=== PATIENT | female | born 1960 | race Caucasian/White ===

== ENCOUNTER 2016-07-14 01:16 | Emergency (ER) | payer OTHER ==
[2016-07-14] MEDS ORDERED: HYDROcodone/APAP 5-325MG 1 EACH TAB PO STA (02:21)
[2016-07-14] MEDS ORDERED: PENICILLIN VK 500MG STARTER 4 TAB BTL PO STA (02:21)
--- NOTE | 2016-07-14 02:25 | ED ---
ENT HPI - General Chief complaint: Dental/Oral Stated complaint: dental pain Time Seen by Provider: 07/14/16 01:33 Source: patient, RN notes reviewed Mode of arrival: ambulatory Limitations: no limitations - History of Present Illness Initial comments: 55 yo female presents to the emergency Department chief complaint of left-sided dental pain. Patient states this started yesterday. Patient states that she called multiple dentists that they were unable to get her in. Patient denies any fever chills. Patient has difficulty opening or closing the mouth. Patient denies any radiation to the neck. Patient was concerned due to her continued pain and discomfort associated that she should be evaluated.Patient denies any recent fever, chills, shortness of breath, chest pain, back pain, abdominal pain, nausea vomiting, numbness or tingling, dysuria or hematuria, constipation or diarrhea, headaches or visual changes, or any other current symptoms. - Related Data Previous Rx's Medication Instructions Recorded Hydrocodone/Acetaminophen [[place] 1 each PO Q6HR PRN #20 tab 07/14/16 5-325] Penicillin V Potassium [Pen Vee K] 500 mg PO TID #40 tab 07/14/16 Allergies Allergy/AdvReac Type Severity Reaction Status Date / Time No Known Allergies Allergy Verified 07/14/16 01:28 Review of Systems ROS Statement: Those systems with pertinent positive or pertinent negative responses have been documented in the HPI. ROS Other: All systems not noted in ROS Statement are negative. Past Medical History Past Medical History: No Reported History History of Any Multi-Drug Resistant Organisms: None Reported Past Surgical History: No Surgical Hx Reported Past Psychological History: No Psychological Hx Reported Smoking Status: Current every day smoker Past Alcohol Use History: None Reported Past Drug Use History: None Reported General Exam Limitations: no limitations General appearance: alert, in no apparent distress Head exam: Present: atraumatic, normocephalic, other (Patient does appear to have left sided lower mandible swelling.) Eye exam: Present: normal appearance, PERRL, EOMI. Absent: scleral icterus, conjunctival injection, periorbital swelling ENT exam: Present: normal exam, mucous membranes moist Expanded Mouth exam: Present: normal external inspection Teeth exam: Present: dental caries (Throughout) Neurological exam: Present: alert, oriented X3 Psychiatric exam: Present: normal affect, normal mood Skin exam: Present: warm Course Vital Signs 07/14/16 01:28 Temperature 98.9 F Pulse Rate 89 Respiratory 16 Rate Blood Pressure 170/74 O2 Sat by Pulse 98 Oximetry Medical Decision Making - Medical Decision Making 55 of left-sided dental pain. At this time we discussed the patient pain medication and antibiotics. The follow-up with a dentist return parameters all patient's questions and she stated that she understood and she is negative clamp. This time, answered. She will be discharged home. Disposition Clinical Impression: Dental caries Disposition: HOME SELF-CARE Condition: Stable Instructions: Dental Caries (ED) Additional Instructions: Please use medication as discussed. Please follow up with family doctor if symptoms have not improved over the next two days. Please return to the emergency room if your symptoms increase or worsen or for any other concerns. [facility] [place] [address] [place] [address] [phone] (existing clients only) For new clients: [phone] 1st consult: $50 (includes Xrays) Usually 30% less then private dentist for visits after. [employer] [facility] [employer] Have to pay $50 for Xrays anmd rest is covered. [phone] Prescriptions: Hydrocodone/Acetaminophen [[place] 5-325] 1 each PO Q6HR PRN #20 tab PRN Reason: Pain Penicillin V Potassium [Pen Vee K] 500 mg PO TID #40 tab Referrals: None,Stated [Primary Care Provider] - 1-2 days Ridge Lambert MD [STAFF PHYSICIAN] - 1-2 days Time of Disposition: 02:24
[2016-07-14 02:30] VITALS: BP 133/87; PULSE 78; RESP 18; TEMP 98.3
== END 2016-07-14 02:29 | disposition home or self-care (01) ==
LOC: EC 01:16
DX: K02.9 Dental caries, unspecified (principal); F17.200 Nicotine dependence, unspecified, uncomplicated
CPT/HCPCS: 99282

== ENCOUNTER 2019-04-16 12:34 | Emergency (ER) | payer OTHER ==
[2019-04-16] MEDS ORDERED: NITROGLYCERIN SL TABS 0.4 MG TAB SUBLINGUAL STA (13:10)
[2019-04-16 13:20] LABS: Basophils # (A) 0.1 k/uL (0-0.2); Basophils % (A) 1 %; Eosinophils # (A) 0.1 k/uL (0-0.7); Eosinophils % (A) 2 %; HCT 45.2 % (34.0-46.0); HGB 14.8 gm/dL (11.4-16.0); Lymphocytes % (A) 18 %; MCH 31.3 pg (25.0-35.0); MCHC 32.8 g/dL (31.0-37.0); MCV 95.3 fL (80.0-100.0); Mean Platelet Volume 7.4; Monocytes # (A) 0.3 k/uL (0-1.0); Monocytes % (A) 6 %; Neutrophils % (A) 72 %; Platelet Count 339 k/uL (150-450); RBC 4.75 m/uL (3.80-5.40); RDW 12.3 % (11.5-15.5); WBC 5.5 k/uL (3.8-10.6)
--- NOTE | 2019-04-16 13:27 | ED ---
Chest Pain HPI - General Chief Complaint: Chest Pain Stated Complaint: Chest tightness/arm numbness Time Seen by Provider: 04/16/19 12:50 Source: patient, RN notes reviewed Mode of arrival: ambulatory Limitations: no limitations - History of Present Illness Initial Comments: This is a 58-year-old female with no prior history of heart disease who is a s moker and does have COPD who was sent here from [facility] due to the onset of chest pain around 11 AM this morning when she was going to work she states it was tightness 5-6/10 severity associated with some numbness of both arms up. She was given 4 baby aspirin is at the outpatient clinic. She states that yesterday she had sweats and hot flashes lasting about an hour yesterday. She also has some similar symptoms which went away quickly today her that going away quickly though she does states she feels improved at this time and the chest discomfort is 0-1/10 in severity she still has the arm numbness which is somewhat improved it. She is a smoker. She has no recent fevers chills nausea or vomiting she did have the symptoms reported yesterday. No abdominal pain no other modifying factors MD Complaint: chest pain - Related Data Home Medications Medication Instructions Recorded Confirmed No Known Home Medications 04/16/19 04/16/19 Allergies Allergy/AdvReac Type Severity Reaction Status Date / Time No Known Allergies Allergy Verified 04/16/19 14:16 Review of Systems ROS Statement: Those systems with pertinent positive or pertinent negative responses have been documented in the HPI. ROS Other: All systems not noted in ROS Statement are negative. EKG Findings - EKG Results: EKG: interpreted by MICHELLE, sinus rhythm (EKG shows sinus rhythm with short KS interval rate was 68. Interval 108 QRS duration 80 QT/QTC 364/[address]-T wave changes) Past Medical History Past Medical History: COPD, Osteoarthritis (OA) Additional Past Medical History / Comment(s): Heart murmur, bronchitis, bilateral carpal tunnel syndrome, athrtitis mostly in her elbows. History of Any Multi-Drug Resistant Organisms: None Reported Past Surgical History: No Surgical Hx Reported Additional Past Surgical History / Comment(s): Pyloromyotomy as an Past Anesthesia/Blood Transfusion Reactions: No Reported Reaction Past Psychological History: No Psychological Hx Reported Smoking Status: Current every day smoker Past Alcohol Use History: None Reported Past Drug Use History: None Reported - Past Family History Father Family Medical History: Vascular Disorder Additional Family Medical History / Comment(s): Father of a brain aneurysm at the age of 52 yrs. Mother Family Medical History: Coronary Artery Disease (CAD), Diabetes Mellitus Additional Family Medical History / Comment(s): Pt states mother of CAD at the age of 72 yrs. General Exam - General Exam Comments Initial Comments: This is a well-developed asthenic appearing female who is awake alert oriented 3 Limitations: no limitations General appearance: alert, anxious Head exam: Present: atraumatic, normocephalic, normal inspection Eye exam: Present: normal appearance, PERRL, EOMI. Absent: scleral icterus, conjunctival injection, periorbital swelling ENT exam: Present: normal exam, mucous membranes moist Neck exam: Present: normal inspection, full ROM, other (No stridor JVD or bruits). Absent: tenderness, meningismus, lymphadenopathy Respiratory exam: Present: normal lung sounds bilaterally. Absent: respiratory distress, wheezes, rales, rhonchi, stridor Cardiovascular Exam: Present: regular rate, normal rhythm, normal heart sounds. Absent: systolic murmur, diastolic murmur, rubs, gallop, clicks GI/Abdominal exam: Present: soft, normal bowel sounds. Absent: distended, tenderness, guarding, rebound, rigid Extremities exam: Present: normal inspection, full ROM, normal capillary refill. Absent: tenderness, pedal edema, joint swelling, calf tenderness Back exam: Present: normal inspection Neurological exam: Present: alert, oriented X3, CN II-XII intact Psychiatric exam: Present: normal affect, normal mood Skin exam: Present: warm, dry, intact, normal color. Absent: rash Course Vital Signs 04/16/19 04/16/19 04/16/19 12:37 13:14 13:17 Temperature 98.0 F Pulse Rate 83 75 75 Respiratory 20 18 18 Rate Blood Pressure 139/84 147/95 124/83 O2 Sat by Pulse 99 95 97 Oximetry 04/16/19 13:30 Temperature Pulse Rate 75 Respiratory 18 Rate Blood Pressure 124/83 O2 Sat by Pulse 95 Oximetry Procedures - Smoking Cessation Time Spent Discussing Smoking Cessation w/Patient (Minutes): 3 Patient Acknowledges Need for Cessation: Yes (She does agree that she is a stop smoking she is going to start pursuing th) Chest Pain MDM - MDM I did reevaluate the patient and she did get some relief from the nitroglycerin and it feels asymptomatic at this time. Her x-rays are unremarkable additional evidence of COPD. I did discuss the findings with the patient I did recommend admission the patient is refusing to stay. She does have access to nitroglycerin all she was advised to take a baby aspirin daily. Smoking which she is agreed to try to do she is going to follow-up with her assigned Dr. early next week she was advised that she could return at any time if any problems. Disposition Clinical Impression: Chest pain, Smoking Disposition: Left Against Medical Advice Condition: Stable Instructions (If sedation given, give patient instructions): Chest Pain (ED), How to Stop Smoking (ED) Additional Instructions: Return if any problems a recurrent chest pain. Take a baby aspirin every day, he 1 mg. Is patient prescribed a controlled substance at d/c from ED?: No Referrals: Berna Lee MD [Primary Care Provider] - 1-2 days
[2019-04-16 13:31] LABS: ALT 17 U/L (4-34); AST 24 U/L (14-36); African American GFR (CKD) >90 (>60 ml/min/1.73 sqM); Albumin 4.5 g/dL (3.5-5.0); Alkaline Phosphatase 104 U/L (38-126); Anion Gap 7 mmol/L; Blood Urea Nitrogen 13 mg/dL (7-17); Calcium 9.7 mg/dL (8.4-10.2); Carbon Dioxide 25 mmol/L (22-30); Chloride 107 mmol/L (98-107); Creatine Kinase 77 U/L (30-135); Glucose 105 mg/dL (74-99); Magnesium 2.1 mg/dL (1.6-2.3); Non-African American GFR(CKD) >90 (>60 ml/min/1.73 sqM); Potassium 4.9 mmol/L (3.5-5.1); Sodium 139 mmol/L (137-145); Total Bilirubin 0.4 mg/dL (0.2-1.3); Total Protein 7.5 g/dL (6.3-8.2)
[2019-04-16 13:34] LABS: D-Dimer 0.43 mg/L FEU (<0.60); INR 0.9 (<1.2); Prothrombin Time 9.7 sec (9.0-12.0)
--- NOTE | 2019-04-16 14:03 | XR ---
EXAMINATION TYPE: XR chest 2V DATE OF EXAM: 04/16/2019 COMPARISON: 05/08/2018 HISTORY: Chest pain TECHNIQUE: Frontal and lateral views of the chest are obtained. FINDINGS: Biapical emphysematous change of the lungs. Pulmonary per inflation and flattening of the diaphragms indicative of underlying COPD. No new focal consolidation. No pneumothorax or pleural effu joon. Cardiomediastinal silhouette is nonenlarged. IMPRESSION: COPD. No acute process.
[2019-04-16 15:46] VITALS: BP 119/84; PULSE 68; RESP 16; TEMP 98.1
== END 2019-04-16 15:58 | disposition left against medical advice (07) ==
LOC: EC 12:34
DX: R07.9 Chest pain, unspecified (principal); J44.9 Chronic obstructive pulmonary disease, unspecified; R20.0 Anesthesia of skin; F17.200 Nicotine dependence, unspecified, uncomplicated; Z53.20 Procedure and treatment not carried out because of patient's decision for unspecified reasons; Z71.6 Tobacco abuse counseling; Z82.49 Family history of ischemic heart disease and other diseases of the circulatory system
CPT/HCPCS: 36415; 71046; 80053; 82550; 83735; 83880; 84484; 85025; 85379; 85610; 85730; 93005; 99285; 99406

== ENCOUNTER → 2019-04-30 | Outpatient (CLI) | payer OTHER ==
--- NOTE | 2019-04-30 11:51 | US ---
EXAMINATION TYPE: US thyroid st tissue head/neck DATE OF EXAM: 04/30/2019 COMPARISON: NONE CLINICAL HISTORY: E04.1 rt thyroid nodule. GLAND SIZE: Right Lobe: 5.9 x 2.4 x 2.4 cm Overall Parenchyma: homogenous Left Lobe: 5.3 x 1.5 x 1.5 cm Overall Parenchyma: homogeneous Isthmus Thickness: 0.2 cm NODULES RIGHT: # of nodules measured on right: 1 1. 2.2 X 1.9 x 2.7 cm isoechoic solid nodule at the mid pole with well-defined margins with interna l calcification. This nodule is wider than tall and shows intranodular vascularity. No prior LEFT: # of nodules measured on left: 0 ISTHMUS: # of nodules measured in the isthmus: 0 Bilateral neck scanned, no evidence of lymphadenopathy. IMPRESSION: Solid 2.7 cm right thyroid nodule with internal calcifications. Fine-needle aspiration is recommended if not previously performed at an outside institution.
--- NOTE | 2019-05-01 14:30 | ECHOF ---
Referral Reason:Chest pain MEASUREMENTS -------- HEIGHT: 160.0 cm WEIGHT: 49.9 kg BP: RVIDd: 2.5 cm (< 3.3) IVSd: 1.1 cm (0.6 - 1.1) LVIDd: 3.4 cm (3.9 - 5.3) LVPWd: 1.1 cm (0.6 - 1.1) IVSs: 1.3 cm LVIDs: 2.6 cm LVPWs: 1.3 cm LA Diam: 2.9 cm (2.7 - 3.8) Ao Diam: 2.7 cm (2.0 - 3.7) AV Cusp: 2.0 cm (1.5 - 2.6) MV EXCURSION: 20.521 mm (> 18.000) MV EF SLOPE: 190 mm/s (70 - 150) EPSS: 0.4 cm MV E Bennie: 0.58 m/s MV DecT: 132 ms MV A Bennie: 0.50 m/s MV E/A Ratio: 1.17 RAP: 5.00 mmHg RVSP: 31.76 mmHg FINDINGS -------- Sinus rhythm. This was a technically good study. LV size, wall thickness and systolic function are normal, with an EF greater than 55%. The left sai tricular size is normal. Overall left ventricular systolic function is normal with, an EF between 5 5 - 60 %. The diastolic filling pattern is normal for the age of the patient 7.83. The right ventricle is normal in size. The left atrial size is normal. Normal LA size by volume 22+/-6 ml/m2. The right atrial size is normal. There is mild aortic valve sclerosis. There is no evidence of aortic regurgitation. Mild mitral annular calcification present. Mild mitral regurgitation is present. Mild tricuspid regurgitation present. Right ventricular systolic pressure is normal at < 35 mmHg. There is no evidence of pulmonary hypertension. There is no pulmonic regurgitation present. The aortic root size is normal. There is no pericardial effusion. CONCLUSIONS -------- 1. Sinus rhythm. 2. This was a technically good study. 3. LV size, wall thickness and systolic function are normal, with an EF greater than 55%. 4. The left ventricular size is normal. 5. Overall left ventricular systolic function is normal with, an EF between 55 - 60 %. 6. The diastolic filling pattern is normal for the age of the patient 7.83 7. The right ventricle is normal in size. 8. The left atrial size is normal. 9. Normal LA size by volume 22+/-6 ml/m2. 10. The right atrial size is normal. 11. There is mild aortic valve sclerosis. 12. Mild mitral annular calcification present. 13. Mild mitral regurgitation is present. 14. Mild tricuspid regurgitation present. 15. Right ventricular systolic pressure is normal at < 35 mmHg. 16. There is no evidence of pulmonary hypertension. 17. There is no pulmonic regurgitation present. 18. The aortic root size is normal. 19. There is no pericardial effusion. AIR TOOL OPERATOR: Ale Rosa RDCS
== END | disposition home or self-care (01) ==
LOC: RADUSWWP 09:31
PROVIDERS: ATTEND Family Medicine
DX: E04.1 Nontoxic single thyroid nodule (principal); E07.89 Other specified disorders of thyroid; I08.3 Combined rheumatic disorders of mitral, aortic and tricuspid valves
CPT/HCPCS: 76536; 93306

== ENCOUNTER → 2019-06-01 | Outpatient (CLI) | payer OTHER ==
--- NOTE | 2019-06-01 12:43 | CTL ---
EXAMINATION TYPE: CT Low Dose Lung DATE OF EXAM ORDERED: 06/01/2019 HISTORY: Personal history of tobacco abuse. Lung cancer screening CT DLP: 34.[address] CTDI: 1.10 mGy Automated exposure control for dose reduction was used. SCREENING VISIT: Initial COMPARISON: None TECHNIQUE: Low dose computed tomography scan was performed through the chest at 1 mm thick sections a nd reconstructed images in the coronal plane at [address] DIAGNOSTIC QUALITY: Satisfactory FINDINGS: LUNG NODULES: Present, detailed below: There is a 2 mm solid pulmonary nodule in the peripheral right lower lobe in the superior segment on image 143. There is a 2 mm subsolid pulmonary nodule in the peripheral left upper lobe on image 69. There is a calcified benign granuloma of the left lateral upper lobe on image 90 measuring 3 mm. LUNGS: COPD: Severity: Mild Fibrosis: Severity: Biapical pleural-parenchymal scarring Lymph nodes: Nonenlarged RIGHT PLEURAL SPACE: Effusion: None Calcification: None Thickening: None Pneumothorax: None LEFT PLEURAL SPACE: Effusion: None Calcification: None Thickening: None Pneumothorax: None HEART: Heart Size: Normal Coronary calcification: None seen Pericardial effusion: None OTHER FINDINGS: Upper abdomen: Unremarkable limited unenhanced images Bony thorax: Mild degenerative change of the spine. Supraclavicular region: Dystrophic calcifications of the right thyroid gland. The right thyroid is en larged in comparison left with possible isoattenuated 2.8 cm nodule. Thyroid ultrasound is recommende d. IMPRESSION: 1. Lung RADS 2-benign appearance or behavior-nodules with a very low likelihood of becoming a clinica lly active cancer due to size- bilateral subcentimeter thyroid nodules. 2. Possible isoattenuated right 2.8 cm thyroid nodule. Thyroid ultrasound is recommended for further evaluation. FOLLOW UP CT CHEST RECOMMENDATION: Low-dose chest CT in [address] LUNG RAD: 2
--- NOTE | 2019-06-02 10:06 | MM ---
Reason for exam: screening (asymptomatic). History: Patient is postmenopausal. Family history of breast cancer in grandmother. Physical Findings: A clinical breast exam by your physician is recommended on an annual basis and results should be correlated with mammographic findings. MG Screening Mammo w CAD Bilateral CC and MLO view(s) were taken. No prior studies available for comparison. The breast tissue is extremely dense which could obscure a lesion on mammography. No suspicious abnormality on the left breast. Prominent asymmetric right axillary lymph nodes. ASSESSMENT: Incomplete: need additional imaging evaluation, BI-RAD 0 RECOMMENDATION: Ultrasound of the right breast. (axillary) [facility] will attempt to contact patient to return for ultrasound.
== END | disposition home or self-care (01) ==
LOC: RADCTMAIN 11:54
PROVIDERS: ATTEND Family Medicine
DX: Z12.31 Encounter for screening mammogram for malignant neoplasm of breast (principal); Z12.2 Encounter for screening for malignant neoplasm of respiratory organs; F17.210 Nicotine dependence, cigarettes, uncomplicated; Z72.0 Tobacco use
CPT/HCPCS: 77067; G0297

== ENCOUNTER 2019-06-15 12:47 | Day surgery (SDC) | payer OTHER ==
[2019-06-15 13:49] VITALS: RESP 18; TEMP 98.1
[2019-06-15 14:00] VITALS: PULSE 88
[2019-06-15 14:35] VITALS: BP 122/80
--- NOTE | 2019-06-16 08:13 | US ---
ULTRASOUND GUIDED FNA THYROID BIOPSY: CLINICAL HISTORY: 04/30/2019 FINDINGS: The procedure was explained to the patient. The risks, complications, benefits and alternatives were discussed and any questions were answered. Informed consent was obtained. Patient was placed supin e on the ultrasound table and prepped and draped in the usual sterile fashion. Utilizing a 25 gauge needle, five passes were made into the requested right thyroid nodule. Patient was stable throughout the procedure. Pathology is pending. All elements of maximal barrier technique were utilized. IMPRESSION: 1. Successful ultrasound guided FNA thyroid biopsy.
== END 2019-06-15 14:35 | disposition home or self-care (01) ==
LOC: RADPROMAIN 12:47
PROVIDERS: ATTEND Surgery
DX: E04.2 Nontoxic multinodular goiter (principal)
CPT/HCPCS: 10005; 88173; 88305

== ENCOUNTER → 2019-06-16 | Outpatient (CLI) | payer OTHER ==
--- NOTE | 2019-06-16 11:53 | USB ---
Reason for exam: additional evaluation requested from abnormal screening. History: Patient is postmenopausal. Family history of breast cancer in grandmother. Physical Findings: Nurse did not find any significant physical abnormalities on exam. US Breast Workup Limited RT Right limited breast ultrasound including focal area of concern, retroareolar and axilla demonstrates multiple lymph nodes in the right axilla, largest measuring 1.9 x 0.8 x 1.0cm. These results were verbally communicated with the patient and result sheet given to the patient on 06/16/19. ASSESSMENT: Benign, BI-RAD 2 RECOMMENDATION: Return to routine screening mammogram schedule for both breasts. Manage patient on a clinical basis.
== END | disposition home or self-care (01) ==
LOC: RADUSWWP 10:48
PROVIDERS: ATTEND Family Medicine
DX: R92.8 Other abnormal and inconclusive findings on diagnostic imaging of breast (principal)

== ENCOUNTER 2019-12-20 17:30 | Emergency (ER) | payer OTHER ==
[2019-12-20 17:45] VITALS: BP 154/88; PULSE 85; RESP 18; TEMP 98.2
[2019-12-20] MEDS ORDERED: LIDOCAINE 1% INJ 10MG/ML (20 ML MDV) SQ ONE (17:49)
--- NOTE | 2019-12-20 17:49 | ED ---
Wound/Laceration HPI - General Chief Complaint: Wound/Laceration Stated Complaint: Right hand lac Time Seen by Provider: 12/20/19 17:47 Source: patient Mode of arrival: ambulatory Limitations: no limitations - History of Present Illness Initial Comments: patient is 59-year-old female presenting to the emergency department with a chief complaint of laceration. She was using a nail file accidentally lacerated the anterior aspect of her right thumb. Tetanus is not up-to-date. Minimal pain. No active bleeding at this time. No blood thinners. No numbness or tingling. - Related Data Home Medications Medication Instructions Recorded Confirmed Aspirin [Adult Low Dose Aspirin EC] 81 mg PO QAM 05/17/19 06/10/19 Losartan [Cozaar] 50 mg PO DAILY 06/02/19 06/15/19 Allergies Allergy/AdvReac Type Severity Reaction Status Date / Time No Known Allergies Allergy Verified 12/20/19 17:45 Review of Systems ROS Statement: Those systems with pertinent positive or pertinent negative responses have been documented in the HPI. ROS Other: All systems not noted in ROS Statement are negative. Past Medical History Past Medical History: Cancer, COPD, Hypertension, Osteoarthritis (OA) Additional Past Medical History / Comment(s): Heart murmur, bronchitis, bilateral carpal tunnel syndrome, athrtitis mostly in her elbows. Mass on thyroid. Skin cancer face/ear Basal cell. History of Any Multi-Drug Resistant Organisms: None Reported Past Surgical History: No Surgical Hx Reported Additional Past Surgical History / Comment(s): Pyloromyotomy as an . Past Anesthesia/Blood Transfusion Reactions: No Reported Reaction Past Psychological History: No Psychological Hx Reported Smoking Status: Current every day smoker Past Alcohol Use History: None Reported Past Drug Use History: None Reported - Past Family History Father Family Medical History: Vascular Disorder Additional Family Medical History / Comment(s): Father of a brain aneurysm at the age of 52 yrs. Mother Family Medical History: Coronary Artery Disease (CAD), Diabetes Mellitus Additional Family Medical History / Comment(s): Pt states mother of CAD at the age of 72 yrs. General Exam Limitations: no limitations General appearance: alert, in no apparent distress Head exam: Present: atraumatic, normocephalic, normal inspection Eye exam: Present: normal appearance, PERRL, EOMI. Absent: scleral icterus, conjunctival injection, periorbital swelling ENT exam: Present: normal exam, mucous membranes moist Neck exam: Present: normal inspection. Absent: tenderness, meningismus, lymphadenopathy Respiratory exam: Present: normal lung sounds bilaterally. Absent: respiratory distress, wheezes, rales, rhonchi, stridor Cardiovascular Exam: Present: regular rate, normal rhythm, normal heart sounds. Absent: systolic murmur, diastolic murmur, rubs, gallop, clicks Extremities exam: Present: full ROM, normal capillary refill, other (+2 ulnar radial pulses bilateral. Sensation intact in the right hand.). Absent: normal inspection (Laceration measuring approximately 1 cm in length on the anterior aspect of the right thumb.), tenderness Back exam: Present: normal inspection, full ROM. Absent: tenderness Neurological exam: Present: alert, oriented X3 Psychiatric exam: Present: normal affect, normal mood Skin exam: Present: warm, dry, intact, normal color. Absent: rash Course Vital Signs 12/20/19 17:40 Temperature 98.2 F Pulse Rate 85 Respiratory 18 Rate Blood Pressure 154/88 O2 Sat by Pulse 100 Oximetry Procedures - Laceration Laceration #1 Consent Obtained: verbal consent Indication: laceration Site: hand Size (cm): 1 Description: linear, clean Depth: simple, single layer Sedation/Analgesia: none Anesthetic Used: lidocaine 1% Anesthesia Technique: local infiltration Amount (mls): 2 Pre-repair: irrigated extensively, deep structures intact Type of Sutures: nylon Size of Sutures: 4-0 Number of Sutures: 2 Technique: simple, interrupted Patient Tolerated Procedure: well, no complications Medical Decision Making - Medical Decision Making Patient is a 5-year-old female presents emergency Department with chief complaint laceration. Her tetanus was updated. Laceration site thoroughly irrigated and lacerated with 2 sutures. Suture instructions given. Advised to return in 10 days for removal. Case discussed with physician Disposition Clinical Impression: Laceration Disposition: HOME SELF-CARE Condition: Stable Instructions (If sedation given, give patient instructions): Care For Your Stitches (DC), Laceration (DC) Additional Instructions: Please return to the emergency room in 8-10 days to have sutures removed. Please watch for any signs of infection which may include increased pain, swelling, redness, fever or chills. Please return to emergency room for any signs of infection do occur. Please use clean soap and water over the area to prevent scabbing over your stitches. Please leave wound covered for the first 24-48 hours and then leave wound open to air. Please return to the emergency room for any other concerns. Is patient prescribed a controlled substance at d/c from ED?: No Referrals: Willem Anderson [Primary Care Provider] - 1-2 days Time of Disposition: 18:06
[2019-12-20] MEDS ORDERED: DIPH,PERTUS(ACELL)TETVAC-LF 0.5 ML VIAL IM ONE (17:53)
== END 2019-12-20 18:24 | disposition home or self-care (01) ==
LOC: EC 17:30
DX: S61.011A Laceration without foreign body of right thumb without damage to nail, initial encounter (principal); I10 Essential (primary) hypertension; F17.200 Nicotine dependence, unspecified, uncomplicated; Z79.82 Long term (current) use of aspirin; Z79.899 Other long term (current) drug therapy; Z85.828 Personal history of other malignant neoplasm of skin; Z23 Encounter for immunization; W26.8XXA Contact with other sharp object(s), not elsewhere classified, initial encounter; Y93.89 Activity, other specified; Y92.009 Unspecified place in unspecified non-institutional (private) residence as the place of occurrence of the external cause
CPT/HCPCS: 90715; 99282; 12001; 90471; J2001

== ENCOUNTER → 2020-04-27 | Outpatient (CLI) | payer OTHER ==
--- NOTE | 2020-04-27 11:47 | XR ---
EXAMINATION TYPE: XR lumbar spine 2 or 3V DATE OF EXAM: 04/27/2020 COMPARISON: None HISTORY: Pain lateral upper thigh TECHNIQUE: Three-view lumbar spine FINDINGS: There are 4 lumbar-type vertebral bodies. Pedicles are intact. There may be sacralization o f L5. Posterior disc space narrowing the L4-5 appears to be present. Remaining disc heights are prese rved. Vertebral body heights are preserved. IMPRESSION: 1. Mild degenerative disc change lower lumbar spine
== END | disposition home or self-care (01) ==
LOC: RADXRMAIN 10:49
PROVIDERS: ATTEND Family Medicine
DX: M51.36 Other intervertebral disc degeneration, lumbar region (principal)
CPT/HCPCS: 72100

== ENCOUNTER → 2020-06-15 | Outpatient (CLI) | payer OTHER | END | disposition home or self-care (01) | LOC: LABWHC1 14:20 | PROVIDERS: ATTEND Family Medicine | DX: Z20.822 Contact with and (suspected) exposure to COVID-19 (principal); J06.9 Acute upper respiratory infection, unspecified | CPT/HCPCS: U0003; C9803; U0005 ==

== ENCOUNTER → 2020-07-04 | Outpatient (CLI) | payer OTHER | END | disposition home or self-care (01) | LOC: LABWHC1 15:37 | PROVIDERS: ATTEND Family Medicine | DX: U07.1 COVID-19 (principal); J06.9 Acute upper respiratory infection, unspecified | CPT/HCPCS: U0003; C9803; U0005 ==

== ENCOUNTER → 2020-10-12 | Outpatient (CLI) | payer OTHER ==
--- NOTE | 2020-10-12 13:05 | XR ---
EXAMINATION TYPE: XR shoulder complete 3 views LT, XR knee limited 2 views LT DATE OF EXAM: 10/12/2020 Comparison: None Clinical History: 59-year-old female M25.562, M25.512 Findings: Left shoulder: AC joint appears intact. Subacromial space is preserved. No tendinous or bursal calcifications. No ac soboba fracture, subluxation, dislocation. Visualized left hemithorax is clear. Left knee: No joint effusion. Extensor mechanism appears intact. No acute fracture, subluxation, or dislocation. Possible medial side soft tissue swelling on the AP view. Impression: 1. Left shoulder: No acute osseous abnormal ECG. 2. Left knee: Possible medial sided soft tissue swelling. This may reflect underlying ligamentous inj ury or meniscal pathology. Clinically correlate. If indicated, MRI can be performed. No acute osseous abnormality seen.
== END | disposition home or self-care (01) ==
LOC: RADXRMAIN 10:21
PROVIDERS: ATTEND Family Medicine
DX: M25.512 Pain in left shoulder (principal); M25.562 Pain in left knee

== ENCOUNTER → 2020-11-22 | Outpatient (CLI) | payer OTHER | END | disposition home or self-care (01) | LOC: LABWHC1 14:20 | PROVIDERS: ATTEND Family Medicine | DX: Z20.822 Contact with and (suspected) exposure to COVID-19 (principal); J06.9 Acute upper respiratory infection, unspecified; R07.89 Other chest pain | CPT/HCPCS: 87081; 87430; U0003; C9803; U0005 ==

== ENCOUNTER → 2021-02-16 | Outpatient (CLI) | payer OTHER ==
--- NOTE | 2021-02-16 12:52 | US ---
EXAMINATION TYPE: US thyroid st tissue head/neck DATE OF EXAM: 02/16/2021 COMPARISON: 06/15/2019 FNA CLINICAL HISTORY: E04.1 Right thyroid nodule. GLAND SIZE: Right Lobe: 5.6x2.5x2.8 cm Overall Parenchyma: homogenous Left Lobe: 4.8x1.4x1.5 cm Overall Parenchyma: homogeneous Isthmus Thickness: 0.2 cm NODULES RIGHT: # of nodules measured on right: 1 1. 2.9 X 2.3 x 2.2 cm, mid mid, solid or almost completely solid, hyperechoic nodule, which is wide r than tall, with smooth margins, with macrocalcification. Prior size: 2.7 x 2.2 x 2.2 cm LEFT: # of nodules measured on left: 0 ISTHMUS: # of nodules measured in the isthmus: 0 Bilateral neck scanned, no evidence of lymphadenopathy. Homogeneous thyroid gland with slightly enlarged right thyroid lobe due to 2.9 cm thyroid nodule rede monstrated IMPRESSION: Stable dominant right thyroid nodule which was sampled June 15, 2019. Correlate clinical ly. 2017 ACR TI-RADS LEVEL: TR-RADS 4 - Moderately Suspicious: Follow if > 1 cm, FNA if > 1.5 cm *Highest TI-RADS level nodule reported
== END | disposition home or self-care (01) ==
LOC: RADUSWWP 12:16
PROVIDERS: ATTEND Family Medicine
DX: E04.1 Nontoxic single thyroid nodule (principal)
CPT/HCPCS: 76536

== ENCOUNTER 2021-04-25 13:14 | Observation (INO) | payer OTHER ==
[2021-04-25 14:41] LABS: Basophils # (A) 0.1 k/uL (0-0.2); Basophils % (A) 1 %; Eosinophils # (A) 0.1 k/uL (0-0.7); Eosinophils % (A) 2 %; Lymphocytes # (A) 1.9 k/uL (1.0-4.8); Lymphocytes % (A) 32 %; MCH 32.6 pg (25.0-35.0); MCHC 33.3 g/dL (31.0-37.0); MCV 97.9 fL (80.0-100.0); Monocytes # (A) 0.3 k/uL (0-1.0); Monocytes % (A) 5 %; Neutrophils # (A) 3.5 k/uL (1.3-7.7); Neutrophils % (A) 59 %; Platelet Count 342 k/uL (150-450); RBC 4.59 m/uL (3.80-5.40); RDW 12.9 % (11.5-15.5); WBC 5.9 k/uL (3.8-10.6)
[2021-04-25 14:57] LABS: ALT 19 U/L (4-34); AST 25 U/L (14-36); African American GFR (CKD) >90 (>60 ml/min/1.73 sqM); Albumin 4.7 g/dL (3.5-5.0); Alkaline Phosphatase 97 U/L (38-126); Anion Gap 11 mmol/L; Blood Urea Nitrogen 11 mg/dL (7-17); Calcium 9.8 mg/dL (8.4-10.2); Carbon Dioxide 23 mmol/L (22-30); Chloride 107 mmol/L (98-107); Glucose 100 mg/dL (74-99); Magnesium 2.1 mg/dL (1.6-2.3); Non-African American GFR(CKD) >90 (>60 ml/min/1.73 sqM); Potassium 4.3 mmol/L (3.5-5.1); Sodium 141 mmol/L (137-145); Total Bilirubin 0.5 mg/dL (0.2-1.3); Total Protein 7.6 g/dL (6.3-8.2)
[2021-04-25 15:03] LABS: INR 0.9 (<1.2); Partial Thromboplastin Time 24.2 sec (22.0-30.0); Prothrombin Time 10.4 sec (9.0-12.0)
--- NOTE | 2021-04-25 15:24 | XR ---
EXAMINATION TYPE: XR chest 2V DATE OF EXAM: 04/25/2021 COMPARISON: 04/16/2019 HISTORY: Shortness of breath TECHNIQUE: Frontal and lateral views of the chest are obtained. FINDINGS: Scattered senescent parenchymal changes noted. Hyperinflation compatible with COPD. No evidence for infiltrate. No evidence for atelectasis. Heart size is stable. Mediastinal structures are stable and grossly unremarkable. No evidence for hilar prominence. Degenerative changes dorsal spine. IMPRESSION: 1. No evidence for acute pulmonary disease.
--- NOTE | 2021-04-25 15:46 | ED ---
General Adult HPI - General Chief complaint: Recheck/Abnormal Lab/Rx Stated complaint: abnormal EKG, lab recheck Time Seen by Provider: 04/25/21 15:03 Source: patient Mode of arrival: ambulatory Limitations: no limitations - History of Present Illness Initial comments: This 60-year-old female with past medical history of COPD and hypertension presents to the emergency department after being sent in by her primary care provider for chest pain and EKG changes earlier this morning. Patient states since 7 AM she has been having episodes of chest pressure and lightheadedness feeling like she is about to pass out. Patient states she has never experienced anything like this in her past. She states she took her blood pressure this morning and it was 143/85. She states she has been taking her blood pressure medication as directed. Patient states "I just don't feel right." She states she was given an aspirin by her primary care doctor before being sent here. Patient currently does not have any chest pressure or feel lightheaded at this time. Patient states when she did experience a lightheadedness she also experienced her vision being dark for about 2 seconds and then returned to normal. Patient states she has seen a school transportation director in her past but doesn't know who it was and was not from the area. She states she did have an episode for she felt like she was about to pass out states she did not fall. Patient denies any current chest pain, shortness of breath, nausea, vomiting, change in vision, change in bowel or bladder, change in appetite, abdominal pain, headache. - Related Data Home Medications Medication Instructions Recorded Confirmed Losartan [Cozaar] 50 mg PO DAILY 06/02/19 04/25/21 Allergies Allergy/AdvReac Type Severity Reaction Status Date / Time No Known Allergies Allergy Verified 04/25/21 16:01 Review of Systems ROS Statement: Those systems with pertinent positive or pertinent negative responses have been documented in the HPI. ROS Other: All systems not noted in ROS Statement are negative. Past Medical History Past Medical History: Cancer, COPD, Hypertension, Osteoarthritis (OA) Additional Past Medical History / Comment(s): Heart murmur, bronchitis, bilateral carpal tunnel syndrome, athrtitis mostly in her elbows. Mass on thyroid. Skin cancer face/ear Basal cell. History of Any Multi-Drug Resistant Organisms: None Reported Past Surgical History: No Surgical Hx Reported Additional Past Surgical History / Comment(s): Pyloromyotomy as an . Past Anesthesia/Blood Transfusion Reactions: No Reported Reaction Past Psychological History: No Psychological Hx Reported Smoking Status: Current every day smoker Past Alcohol Use History: None Reported Past Drug Use History: None Reported - Past Family History Father Family Medical History: Vascular Disorder Additional Family Medical History / Comment(s): Father of a brain aneurysm at the age of 52 yrs. Mother Family Medical History: Coronary Artery Disease (CAD), Diabetes Mellitus Additional Family Medical History / Comment(s): Pt states mother of CAD at the age of 72 yrs. General Exam Limitations: no limitations General appearance: alert, in no apparent distress Head exam: Present: atraumatic, normocephalic, normal inspection Eye exam: Present: normal appearance, PERRL, EOMI Pupils: Present: normal accommodation ENT exam: Present: mucous membranes moist Neck exam: Present: full ROM, other. Absent: tenderness Respiratory exam: Present: normal lung sounds bilaterally. Absent: respiratory distress, wheezes, rales, rhonchi, stridor, chest wall tenderness Cardiovascular Exam: Present: regular rate, normal rhythm, normal heart sounds. Absent: systolic murmur, diastolic murmur, rubs, gallop, clicks GI/Abdominal exam: Present: soft, normal bowel sounds. Absent: distended, tenderness, guarding, rebound, rigid Extremities exam: Present: full ROM Back exam: Present: full ROM. Absent: tenderness, CVA tenderness (R), CVA tenderness (L) Neurological exam: Present: alert, oriented X3, CN II-XII intact, normal gait, other (Patient was strength 5/5 bilaterally in upper and lower extremities. No visual changes Patient able to perform finger to nose and 6 cardinal signs of days without any issue.Rapid alternating movements intact.) Psychiatric exam: Present: normal affect, normal mood Skin exam: Present: warm, dry, intact, normal color. Absent: rash Course Vital Signs 04/25/21 04/25/21 14:04 15:13 Temperature 98.3 F Pulse Rate 80 75 Respiratory 18 18 Rate Blood Pressure 142/84 146/92 O2 Sat by Pulse 98 98 Oximetry EKG Findings - EKG Comments: EKG Findings:: EKG impression. Ventricular rate 73 bpm. MI interval 113. QRS duration 72. QT/QTC 359/385. Deep inverted T waves in V1 and V2. Inverted T waves in aVL Medical Decision Making - Medical Decision Making This 60-year-old female presents emergency Department with chest tightness and lightheadedness that began this morning. EKG did show inverted T waves in aVL, V1 and V2. Labs are unremarkable. Chest x-ray impression with no evidence for acute pulmonary disease. Patient currently denies having symptoms this time. I spoke with who agreed to admit patient to his services for observation with cardiology consulted. Patient verbally agreed to plan. Discussed case with my attending, Dr. Sutherland. - Lab Data Result diagrams: 04/25/21 14:17 04/25/21 14:17 Lab Results 04/25/21 04/25/21 04/25/21 Range/Units 14:17 14:17 14:17 WBC 5.9 (3.8-10.6) k/uL RBC 4.59 (3.80-5.40) m/uL Hgb 15.0 (11.4-16.0) gm/dL Hct 45.0 (34.0-46.0) % MCV 97.9 (80.0-100.0) fL MCH 32.6 (25.0-35.0) pg MCHC 33.3 (31.0-37.0) g/dL RDW 12.9 (11.5-15.5) % Plt Count 342 (150-450) k/uL MPV 7.0 Neutrophils % 59 % Lymphocytes % 32 % Monocytes % 5 % Eosinophils % 2 % Basophils % 1 % Neutrophils # 3.5 (1.3-7.7) k/uL Lymphocytes # 1.9 (1.0-4.8) k/uL Monocytes # 0.3 (0-1.0) k/uL Eosinophils # 0.1 (0-0.7) k/uL Basophils # 0.1 (0-0.2) k/uL PT 10.4 (9.0-12.0) sec INR 0.9 (<1.2) APTT 24.2 (22.0-30.0) sec Sodium 141 (137-145) mmol/L Potassium 4.3 (3.5-5.1) mmol/L Chloride 107 (98-107) mmol/L Carbon Dioxide 23 (22-30) mmol/L Anion Gap 11 mmol/L BUN 11 (7-17) mg/dL Creatinine 0.66 (0.52-1.04) mg/dL Est GFR (CKD-EPI)AfAm >90 (>60 ml/min/1.73 sqM) Est GFR (CKD-EPI)NonAf >90 (>60 ml/min/1.73 sqM) Glucose 100 H (74-99) mg/dL Calcium 9.8 (8.4-10.2) mg/dL Magnesium 2.1 (1.6-2.3) mg/dL Total Bilirubin 0.5 (0.2-1.3) mg/dL AST 25 (14-36) U/L ALT 19 (4-34) U/L Alkaline Phosphatase 97 (38-126) U/L Troponin I (0.000-0.034) ng/mL Total Protein 7.6 (6.3-8.2) g/dL Albumin 4.7 (3.5-5.0) g/dL 04/25/21 Range/Units 14:17 WBC (3.8-10.6) k/uL RBC (3.80-5.40) m/uL Hgb (11.4-16.0) gm/dL Hct (34.0-46.0) % MCV (80.0-100.0) fL MCH (25.0-35.0) pg MCHC (31.0-37.0) g/dL RDW (11.5-15.5) % Plt Count (150-450) k/uL MPV Neutrophils % % Lymphocytes % % Monocytes % % Eosinophils % % Basophils % % Neutrophils # (1.3-7.7) k/uL Lymphocytes # (1.0-4.8) k/uL Monocytes # (0-1.0) k/uL Eosinophils # (0-0.7) k/uL Basophils # (0-0.2) k/uL PT (9.0-12.0) sec INR (<1.2) APTT (22.0-30.0) sec Sodium (137-145) mmol/L Potassium (3.5-5.1) mmol/L Chloride (98-107) mmol/L Carbon Dioxide (22-30) mmol/L Anion Gap mmol/L BUN (7-17) mg/dL Creatinine (0.52-1.04) mg/dL Est GFR (CKD-EPI)AfAm (>60 ml/min/1.73 sqM) Est GFR (CKD-EPI)NonAf (>60 ml/min/1.73 sqM) Glucose (74-99) mg/dL Calcium (8.4-10.2) mg/dL Magnesium (1.6-2.3) mg/dL Total Bilirubin (0.2-1.3) mg/dL AST (14-36) U/L ALT (4-34) U/L Alkaline Phosphatase (38-126) U/L Troponin I <0.012 (0.000-0.034) ng/mL Total Protein (6.3-8.2) g/dL Albumin (3.5-5.0) g/dL Disposition Clinical Impression: Chest tightness, Abnormal finding on EKG, Lightheaded Disposition: ADMITTED IP TO THIS [facility] Condition: Serious Time of Disposition: 16:02
[2021-04-25] MEDS ORDERED: NALOXONE 0.4 MG/ML 1 ML VIAL IV PRN (16:02)
--- NOTE | 2021-04-25 18:04 | P.HPIM ---
History of Present Illness H&P Date: 04/25/21 Chief Complaint: Chest pain This 60-year-old female with past medical history of COPD and hypertension presents to the emergency department after being sent in by her primary care provider for chest pain and EKG changes earlier this morning. Patient states since 7 AM she has been having episodes of chest pressure and lightheadedness feeling like she is about to pass out. Patient states she has never experienced anything like this in her past. She states she took her blood pressure this morning and it was 143/85. She states she has been taking her blood pressure medication as directed. Patient states "I just don't feel right." She states she was given an aspirin by her primary care doctor before being sent here. Patient currently does not have any chest pressure or feel lightheaded at this time. Patient states when she did experience a lightheadedness she also experienced her vision being dark for about 2 seconds and then returned to normal. Patient states she has seen a enterprise account executive in her past but doesn't know who it was and was not from the area. She states she did have an episode for she felt like she was about to pass out states she did not fall. Patient denies any current chest pain, shortness of breath, nausea, vomiting, change in vision, change in bowel or bladder, change in appetite, abdominal pain, headache. Review of Systems All 14 review of systems evaluated and all negative except for above. Past Medical History Past Medical History: Cancer, COPD, Hypertension, Osteoarthritis (OA) Additional Past Medical History / Comment(s): Heart murmur, bronchitis, bilateral carpal tunnel syndrome, athrtitis mostly in her elbows. Mass on thyroid. Skin cancer face/ear Basal cell. History of Any Multi-Drug Resistant Organisms: None Reported Past Surgical History: No Surgical Hx Reported Additional Past Surgical History / Comment(s): Pyloromyotomy as an . Past Anesthesia/Blood Transfusion Reactions: No Reported Reaction Past Psychological History: No Psychological Hx Reported Smoking Status: Current every day smoker Past Alcohol Use History: None Reported Past Drug Use History: None Reported - Past Family History Father Family Medical History: Vascular Disorder Additional Family Medical History / Comment(s): Father of a brain aneurysm at the age of 52 yrs. Mother Family Medical History: Coronary Artery Disease (CAD), Diabetes Mellitus Additional Family Medical History / Comment(s): Pt states mother of CAD at the age of 72 yrs. Medications and Allergies Home Medications Medication Instructions Recorded Confirmed Type Losartan [Cozaar] 50 mg PO DAILY 06/02/19 04/25/21 History Allergies Allergy/AdvReac Type Severity Reaction Status Date / Time No Known Allergies Allergy Verified 04/25/21 16:01 Physical Exam Vitals: Vital Signs Temp Pulse Resp BP Pulse Ox 04/25/21 15:13 75 18 146/92 98 04/25/21 14:04 98.3 F 80 18 142/84 98 Intake and Output 04/25/21 04/25/21 04/25/21 06:59 14:59 22:59 Other: Weight 47.174 kg General: non toxic, no distress, appears at stated age Derm: warm, dry Head: atraumatic, normocephalic, symmetric Eyes: EOMI, no lid lag, anicteric sclera Mouth: no lip lesion, mucus membranes moist Cardiovascular: S1S2 reg, no murmur, positive posterior tibial pulse bilateral, Lungs: CTA bilateral, no rhonchi, no rales , no accessory muscle use Abdominal: soft, nontender to palpation, no guarding, no appreciable organomegaly Ext: no gross muscle atrophy, no edema, no contractures Neuro: CN II-XI grossly intact, no focal neuro deficits Psych: Alert, oriented, appropriate affect Results CBC & Chem 7: 04/25/21 14:17 04/25/21 14:17 Labs: Abnormal Lab Results - Last 24 Hours (Table) 04/25/21 Range/Units 14:17 Glucose 100 H (74-99) mg/dL Assessment and Plan Assessment: Assessment and plan: #Chest pressure -Need to rule out acute coronary syndrome -Patient admitted under observation -Trend troponin every 6 hours 3 -Patient declining stress test -2-D echo ordered -Check lipid panel and A1c -Cardiology consulted #Hypertension -Resume Losartan #COPD without exacerbation -Resume Symbicort #Ongoing tobacco abuse -Patient was counseled regarding smoking cessation -Nicotine patch ordered #DVT prophylaxis prophylaxis with subcu Lovenox Time with Patient: Greater than 30
[2021-04-25] MEDS: NICOTINE 14MG/24HR PATCH TRANSDERM SCH (20:13)
[2021-04-25] MEDS: ENOXAPARIN 40 MG/0.4 ML SYRINGE SQ SCH (20:13)
[2021-04-25] MEDS: SODIUM CHLORIDE 0.9% 1,000 ML IV SCH (20:14)
[2021-04-25] MEDS: SYMBICORT 160-4.5 MCG INHALER INHALATION SCH (22:47)
[2021-04-25 23:49] LABS: Chol/HDL Ratio 3.59 Ratio; LDL Cholesterol,Calculated 110.3 mg/dL (0.0-131.0)
--- NOTE | 2021-04-26 00:21 | P.PN ---
Progress Note - Text Progress Note Date: 04/26/21 notified about abnormal D dimer , patient presented with SOB and chest will check CTA of the chest
[2021-04-26] MEDS ORDERED: MELATONIN 3 MG TABLET PO SCH (00:30)
--- NOTE | 2021-04-26 01:12 | CT ---
EXAMINATION TYPE: CT angio chest DATE OF EXAM: 04/26/2021 COMPARISON: None HISTORY: elevated d-dimer CT DLP: 126.60 mGycm Automated exposure control for dose reduction was used. CONTRAST: Performed with IV Contrast, patient injected with 65 mL of Isovue 370. There are Three-D postprocessed images. There is pulmonary hyperinflation with flattening of the diaphragm. There is mild pulmonary emphysema . There is no mediastinal adenopathy. There are no hilar masses. Heart size is normal. There is no pe ricardial effusion. Thoracic aorta is intact. There is no evidence of aneurysm or dissection. There is normal contrast op acification of the pulmonary arteries. There are no filling defects. The thoracic spine is intact. There is no compression fracture. Sternum is intact. IMPRESSION: No evidence of pulmonary embolism. There is evidence of COPD. No suspicious pulmonary mass.
[2021-04-26] MEDS: SODIUM CHLORIDE 0.9% 1,000 ML IV SCH (05:10)
[2021-04-26] MEDS: SYMBICORT 160-4.5 MCG INHALER INHALATION SCH (08:02)
[2021-04-26] MEDS: NICOTINE 14MG/24HR PATCH TRANSDERM SCH (08:15)
[2021-04-26] MEDS: ENOXAPARIN 40 MG/0.4 ML SYRINGE SQ SCH (08:16)
[2021-04-26 08:44] VITALS: BP 125/74; PULSE 67; RESP 18; TEMP 98.2
[2021-04-26] MEDS ORDERED: LOSARTAN 50 MG TAB PO SCH (09:00)
--- NOTE | 2021-04-26 10:27 | P.CRDCN ---
History of Present Illness Consult date: 04/26/21 Chief complaint: Chest pain History of present illness: The patient is a pleasant 60-year-old female patient with a past medical history significant for hypertension was admitted to the observation unit for chest discomfort located consulted to see the patient for that. The patient is stated that she was in her usual state of health the last night when she started experiencing discomfort mainly in the upper back and upper chest. No associated symptoms of shortness of breath or dizziness or lightheadedness or sweating or any feeling of heart racing or fluttering or presyncope or syncope. For that reason she decided to come to the emergency department. In the emergency she underwent an EKG and that showed sinus rhythm without any significant ST or T- wave abnormalities. She also underwent cardiac enzymes and that came in to be unremarkable. Currently the patient is chest pain-free. She noticed that her pressure was about 140 when she was having chest discomfort yesterday. No established history of coronary artery disease or congestive heart failure or cardiac arrhythmia. Currently the patient is not followed by any coordinator mining products. She does have hypertension. She does not smoke. No family history of premature coronary artery disease. Past Medical History Past Medical History: Cancer, COPD, Hypertension, Osteoarthritis (OA) Additional Past Medical History / Comment(s): Heart murmur, bronchitis, bilateral carpal tunnel syndrome, athrtitis mostly in her elbows. Mass on thyroid. Skin cancer face/ear Basal cell. History of Any Multi-Drug Resistant Organisms: None Reported Past Surgical History: No Surgical Hx Reported Additional Past Surgical History / Comment(s): Pyloromyotomy as an . Past Anesthesia/Blood Transfusion Reactions: No Reported Reaction Past Psychological History: No Psychological Hx Reported Additional Psychological History / Comment(s): Pt resides with another adult. She works chief librarian extension department. She is independent. Smoking Status: Current every day smoker Past Alcohol Use History: None Reported Additional Past Alcohol Use History / Comment(s): Pt started smoking in 1975 and is about a ppd smoker. Past Drug Use History: None Reported - Past Family History Father Family Medical History: Vascular Disorder Additional Family Medical History / Comment(s): Father of a brain aneurysm at the age of 52 yrs. Mother Family Medical History: Coronary Artery Disease (CAD), Diabetes Mellitus Additional Family Medical History / Comment(s): Pt states mother of CAD at the age of 72 yrs. Medications and Allergies Home Medications Medication Instructions Recorded Confirmed Type Losartan [Cozaar] 50 mg PO DAILY 06/02/19 04/25/21 History Allergies Allergy/AdvReac Type Severity Reaction Status Date / Time No Known Allergies Allergy Verified 04/25/21 16:01 Physical Exam Vitals: Vital Signs Temp Pulse Pulse Resp BP BP Pulse Ox 04/26/21 07:00 98.2 F 67 18 125/74 95 04/26/21 02:06 98.1 F 72 16 126/77 94 L 04/26/21 01:30 72 16 04/25/21 23:28 72 16 04/25/21 22:52 98.3 F 72 16 130/75 97 04/25/21 18:23 78 18 137/80 98 04/25/21 15:13 75 18 146/92 98 04/25/21 14:04 98.3 F 80 18 142/84 98 Intake and Output 04/25/21 04/26/21 04/26/21 22:59 06:59 14:59 Intake Total 0 Balance 0 Intake: Oral 0 Other: Voiding Method Toilet # Voids 1 Weight 47.174 kg - Constitutional General appearance: no acute distress - Respiratory Respiratory: bilateral: CTA - Cardiovascular Rhythm: regular Heart sounds: normal: S1, S2 Results 04/25/21 14:17 04/25/21 14:17 Cardiac Enzymes 04/25/21 04/25/21 04/25/21 Range/Units 14:17 14:17 18:08 AST 25 (14-36) U/L Troponin I <0.012 <0.012 (0.000-0.034) ng/mL 04/25/21 Range/Units 22:17 AST (14-36) U/L Troponin I <0.012 (0.000-0.034) ng/mL Coagulation 04/25/21 Range/Units 14:17 PT 10.4 (9.0-12.0) sec APTT 24.2 (22.0-30.0) sec Lipids 04/25/21 Range/Units 18:08 Triglycerides 134.00 (0.00-149.00) mg/dL Cholesterol 190.00 (0.00-200.00) mg/dL HDL Cholesterol 52.90 (40.00-60.00) mg/dL Cholesterol/HDL Ratio 3.59 Ratio CBC 04/25/21 Range/Units 14:17 WBC 5.9 (3.8-10.6) k/uL RBC 4.59 (3.80-5.40) m/uL Hgb 15.0 (11.4-16.0) gm/dL Hct 45.0 (34.0-46.0) % Plt Count 342 (150-450) k/uL Comprehensive Metabolic Panel 04/25/21 Range/Units 14:17 Sodium 141 (137-145) mmol/L Potassium 4.3 (3.5-5.1) mmol/L Chloride 107 (98-107) mmol/L Carbon Dioxide 23 (22-30) mmol/L BUN 11 (7-17) mg/dL Creatinine 0.66 (0.52-1.04) mg/dL Glucose 100 H (74-99) mg/dL Calcium 9.8 (8.4-10.2) mg/dL AST 25 (14-36) U/L ALT 19 (4-34) U/L Alkaline Phosphatase 97 (38-126) U/L Total Protein 7.6 (6.3-8.2) g/dL Albumin 4.7 (3.5-5.0) g/dL Current Medications Generic Name Dose Route Start Last Admin Trade Name Freq PRN Reason Stop Dose Admin Budesonide/Formoterol Fumarate 2 puff 04/25/21 20:00 04/26/21 08:02 Symbicort 160-4.5 Mcg Inhaler INHALATION 2 puff RT-BID ELDON Administration Enoxaparin Sodium 40 mg 04/25/21 18:00 04/26/21 08:16 Enoxaparin 40 Mg/0.4 Ml Syringe SQ Not Given DAILY ELDON Sodium Chloride 1,000 mls @ 75 mls/hr 04/25/21 16:15 04/26/21 05:10 Saline 0.9% IV Not Given .[id number] ELDON Losartan Potassium 50 mg 04/26/21 09:00 04/26/21 08:15 Losartan 50 Mg Tab PO 50 mg DAILY ELDON Administration Melatonin 3 mg 04/26/21 00:30 04/26/21 00:54 Melatonin 3 Mg Tablet PO 3 mg HS ELDON Administration Naloxone HCl 0.2 mg 04/25/21 16:02 Naloxone 0.4 Mg/Ml 1 Ml Vial IV Q2M PRN Opioid Reversal Nicotine 1 patch 04/25/21 18:15 04/26/21 08:15 Nicotine 14mg/24hr Patch TRANSDERM 1 patch DAILY ELDON Administration Intake and Output 04/25/21 04/26/21 04/26/21 22:59 06:59 14:59 Intake Total 0 Balance 0 Intake: Oral 0 Other: Voiding Method Toilet # Voids 1 Weight 47.174 kg 04/25/21 14:17 04/25/21 14:17 Assessment and Plan Assessment: Assessment #1 atypical chest discomfort. Currently the patient is chest pain-free #2 hypertension Plan #1 acute coronary event was ruled out #2 the patient currently is asymptomatic and stable from the cardiovascular standpoint of view #3 we discussed with the patient the need for a stress test to rule out severe CAD and she would like to go home after she gets up and around and being asymptomatic and then she can have the stress test as an outpatient. I'm going to follow-up with the patient as an outpatient in the office and further recommendation to follow that.
--- NOTE | 2021-04-26 11:00 | ECHOF ---
Referral Reason:chest pain MEASUREMENTS -------- HEIGHT: 160.0 cm WEIGHT: 47.2 kg BP: RVIDd: 2.6 cm (< 3.3) IVSd: 0.8 cm (0.6 - 1.1) LVIDd: 4.5 cm (3.9 - 5.3) LVPWd: 0.7 cm (0.6 - 1.1) IVSs: 1.2 cm LVIDs: 2.9 cm LVPWs: 1.3 cm LA Diam: 2.6 cm (2.7 - 3.8) Ao Diam: 2.4 cm (2.0 - 3.7) AV Cusp: 2.0 cm (1.5 - 2.6) MV EXCURSION: 20.043 mm (> 18.000) MV EF SLOPE: 178 mm/s (70 - 150) EPSS: 0.3 cm MV E Bennie: 0.74 m/s MV DecT: 250 ms MV A Bennie: 0.56 m/s MV E/A Ratio: 1.32 RAP: 5.00 mmHg RVSP: 31.05 mmHg FINDINGS -------- Sinus rhythm. This was a technically good study. The left ventricular size is normal. Left ventricular wall thickness is normal. Overall left vent ricular systolic function is normal with, an EF between 60 - 65 %. The right ventricle is normal in size. The left atrium is normal in size. The right atrium is normal in size. Interatrial and interventricular septum intact. The aortic valve is trileaflet, and appears structurally normal. No aortic stenosis or regurgitation. The mitral valve is normal. Mild tricuspid regurgitation present. Right ventricular systolic pressure is normal at < 35 mmHg. Trace/mild (physiologic) pulmonic regurgitation. The aortic root size is normal. Normal inferior vena cava with normal inspiratory collapse consistent with estimated right atrial pre ssure of 5 mmHg. There is no pericardial effusion. CONCLUSIONS -------- 1. The left ventricular size is normal. 2. Left ventricular wall thickness is normal. 3. Overall left ventricular systolic function is normal with, an EF between 60 - 65 %. 4. The aortic valve is trileaflet, and appears structurally normal. No aortic stenosis or regurgitati on. 5. Mild tricuspid regurgitation present. 6. Trace/mild (physiologic) pulmonic regurgitation. 7. There is no pericardial effusion. HOSE CEMENTER: Anyi Cárdenas RDCS
--- NOTE | 2021-04-26 11:10 | P.DS ---
Providers Date of admission: 04/25/21 16:31 Expected date of discharge: 04/26/21 Attending physician: Joyce Blackburn MD Consults: 04/25/21 16:04 Consult Physician Routine Consulting Provider: Jassi Pelayo Consult Reason/Comments: Chest pressure, T-wave inversion on EKG Do you want consulting provider notified?: Yes 04/25/21 17:51 Consult Physician Routine Consulting Provider: Chris Wagner Consult Reason/Comments: chest pain Do you want consulting provider notified?: Yes Primary care physician: Willem [facility] Course: History of present as per H&P: This 60-year-old female with past medical history of COPD and hypertension presents to the emergency department after being sent in by her primary care provider for chest pain and EKG changes earlier this morning. Patient states since 7 AM she has been having episodes of chest pressure and lightheadedness feeling like she is about to pass out. Patient states she has never experienced anything like this in her past. She states she took her blood pressure this morning and it was 143/85. She states she has been taking her blood pressure medication as directed. Patient states "I just don't feel right." She states she was given an aspirin by her primary care doctor before being sent here. Patient currently does not have any chest pressure or feel lightheaded at this time. Patient states when she did experience a lightheadedness she also experienced her vision being dark for about 2 seconds and then returned to normal. Patient states she has seen a qm consultant in her past but doesn't know who it was and was not from the area. She states she did have an episode for she felt like she was about to pass out states she did not fall. Patient denies any current chest pain, shortness of breath, nausea, vomiting, change in vision, change in bowel or bladder, change in appetite, abdominal pain, headache. Detailed problem list: #Chest pressure -Acute coronary syndrome has been ruled out -Patient admitted under observation -Negative troponin -Patient declining inpatient stress test -2-D echo ordered -Cardiology with the patient and recommended outpatient stress test. Patient was cleared for discharge per cardiology #Elevated d-dimer -CT of the chest was negative for PE #Hypertension -Resume Losartan #New onset Pre-Diabetes -A1c 6.3 -Recommend diabetic diet on discharge #COPD without exacerbation -Resume Symbicort #Ongoing tobacco abuse -Patient was counseled regarding smoking cessation -Nicotine patch ordered Assessment: General: non toxic, no distress, appears at stated age Derm: warm, dry Head: atraumatic, normocephalic, symmetric Eyes: EOMI, no lid lag, anicteric sclera Mouth: no lip lesion, mucus membranes moist Cardiovascular: S1S2 reg, no murmur, positive posterior tibial pulse bilateral, Lungs: CTA bilateral, no rhonchi, no rales , no accessory muscle use Abdominal: soft, nontender to palpation, no guarding, no appreciable organomegaly Ext: no gross muscle atrophy, no edema, no contractures Neuro: CN II-XI grossly intact, no focal neuro deficits Psych: Alert, oriented, appropriate affect Patient Condition at Discharge: Stable Plan - Discharge Summary New Discharge Prescriptions: New Budesonide-Formot 160-4.5 Mcg [Symbicort 160-4.5 Mcg Inhaler] 2 puff INHALATION RT-BID gm Continue Losartan [Cozaar] 50 mg PO DAILY Discharge Medication List Losartan [Cozaar] 50 mg PO DAILY 06/02/19 [History] Budesonide-Formot 160-4.5 Mcg [Symbicort 160-4.5 Mcg Inhaler] 2 puff INHALATION RT-BID gm 04/26/21 [Rx] Follow up Appointment(s)/Referral(s): Jassi Pelayo MD [STAFF PHYSICIAN] - 05/01/21 9:30 am Willem Anderson [Primary Care Provider] - 1-2 days Discharge Disposition: HOME SELF-CARE
== END 2021-04-26 11:45 | disposition home or self-care (01) ==
LOC: EC 13:14 → 6NMEDSUR 16:31
PROVIDERS: ADMIT Hospitalist; ATTEND Hospitalist
DX: R07.89 Other chest pain (principal); R94.31 Abnormal electrocardiogram [ECG] [EKG]; I10 Essential (primary) hypertension; R79.89 Other specified abnormal findings of blood chemistry; R73.03 Prediabetes; J44.9 Chronic obstructive pulmonary disease, unspecified; R42 Dizziness and giddiness; M19.90 Unspecified osteoarthritis, unspecified site; G56.03 Carpal tunnel syndrome, bilateral upper limbs; F17.200 Nicotine dependence, unspecified, uncomplicated; M19.022 Primary osteoarthritis, left elbow; M19.021 Primary osteoarthritis, right elbow; E07.9 Disorder of thyroid, unspecified; Z79.899 Other long term (current) drug therapy; Z85.828 Personal history of other malignant neoplasm of skin; Z98.890 Other specified postprocedural states; Z83.3 Family history of diabetes mellitus; Z82.49 Family history of ischemic heart disease and other diseases of the circulatory system; Z71.6 Tobacco abuse counseling
CPT/HCPCS: 96372; 99285; 36415; 94640; 93005; 93306; 85379; 80061; 80053; 83735; 84484; 85025; 85610; 85730; 83036; 71046; 71275; G0378 ×2; S4990 ×2; J1650; Q9967

== ENCOUNTER 2021-10-21 18:34 | Emergency (ER) | payer OTHER ==
[2021-10-21] MEDS ORDERED: LORazepam 1 MG TAB PO STA ×2 (19:26→21:20)
[2021-10-21] MEDS ORDERED: SODIUM CHLORIDE 0.9% 1,000 ML IV STA (19:26)
--- NOTE | 2021-10-21 19:33 | ED ---
General Adult HPI - General Chief complaint: Recheck/Abnormal Lab/Rx Stated complaint: hypertension Time Seen by Provider: 10/21/21 19:05 Source: patient, RN notes reviewed Mode of arrival: ambulatory Limitations: no limitations - History of Present Illness Initial comments: Patient is a pleasant [age]-year-old [facility]. Patient her blood pressure at home and was 169/70. Patient feels that is high for her. Patient admits to feeling anxious. Patient states she has had several episodes similar to this over the past couple years. Patient has mild palpitations. No chest pain. Patient states she may have a mild headache. No weakness or confusion. Patient does have some paresthesias of both of her arms - Related Data Home Medications Medication Instructions Recorded Confirmed Losartan [Cozaar] 50 mg PO DAILY 06/02/19 10/21/21 Aspirin EC [Ecotrin Low Dose] 81 mg PO DAILY 10/21/21 10/21/21 Previous Rx's Medication Instructions Recorded Budesonide-Formot 160-4.5 Mcg 2 puff INHALATION RT-BID gm 04/26/21 [Symbicort 160-4.5 Mcg Inhaler] Losartan [Cozaar] 50 mg PO DAILY #30 tab 10/21/21 Allergies Allergy/AdvReac Type Severity Reaction Status Date / Time No Known Allergies Allergy Verified 10/21/21 19:55 Review of Systems ROS Statement: Those systems with pertinent positive or pertinent negative responses have been documented in the HPI. ROS Other: All systems not noted in ROS Statement are negative. Constitutional: Denies: fever Eyes: Denies: eye pain ENT: Denies: ear pain Respiratory: Denies: cough, dyspnea Cardiovascular: Reports: palpitations. Denies: chest pain Endocrine: Denies: fatigue Gastrointestinal: Denies: abdominal pain Genitourinary: Denies: dysuria Musculoskeletal: Denies: back pain Skin: Denies: rash Neurological: Reports: as per HPI. Denies: weakness Past Medical History Past Medical History: Cancer, COPD, Hypertension, Osteoarthritis (OA) Additional Past Medical History / Comment(s): Heart murmur, bronchitis, bi lateral carpal tunnel syndrome, athrtitis mostly in her elbows. Mass on thyroid. Skin cancer face/ear Basal cell. History of Any Multi-Drug Resistant Organisms: None Reported Past Surgical History: No Surgical Hx Reported Additional Past Surgical History / Comment(s): Pyloromyotomy as an . Past Anesthesia/Blood Transfusion Reactions: No Reported Reaction Past Psychological History: No Psychological Hx Reported Smoking Status: Current every day smoker Past Alcohol Use History: None Reported Past Drug Use History: None Reported - Past Family History Father Family Medical History: Vascular Disorder Additional Family Medical History / Comment(s): Father of a brain aneurysm at the age of 52 yrs. Mother Family Medical History: Coronary Artery Disease (CAD), Diabetes Mellitus Additional Family Medical History / Comment(s): Pt states mother of CAD at the age of 72 yrs. General Exam Limitations: no limitations General appearance: alert, in no apparent distress Head exam: Present: normocephalic Eye exam: Present: normal appearance Neck exam: Present: normal inspection Respiratory exam: Present: normal lung sounds bilaterally Cardiovascular Exam: Present: regular rate, normal rhythm, normal heart sounds. Absent: bradycardia, tachycardia, irregular rhythm, systolic murmur, diastolic murmur GI/Abdominal exam: Present: soft. Absent: tenderness Extremities exam: Present: normal inspection. Absent: pedal edema, calf tenderness Neurological exam: Present: alert, oriented X3. Absent: motor sensory deficit Psychiatric exam: Present: normal affect, normal mood Skin exam: Present: normal color Course Vital Signs 10/21/21 10/21/21 18:58 19:49 Temperature 98.1 F Pulse Rate 78 75 Respiratory 16 20 Rate Blood Pressure 163/88 142/90 O2 Sat by Pulse 98 97 Oximetry EKG Findings - EKG Comments: EKG Findings:: Sinus rhythm with rate of 72. DC 1:15. QRS 78. QT 357. QTC 31. Normal axis. Normal QRS. No acute ST change. Medical Decision Making - Medical Decision Making Patient reevaluated and symptom-free following Ativan. Patient is eating. Patient updated on results and need for follow-up. Patient adds she is out of her losartan - Lab Data Result diagrams: 10/21/21 19:35 10/21/21 19:35 Lab Results 10/21/21 10/21/21 10/21/21 Range/Units 19:35 19:35 19:37 WBC 8.1 (3.8-10.6) k/uL RBC 4.24 (3.80-5.40) m/uL Hgb 14.0 (11.4-16.0) gm/dL Hct 42.2 (34.0-46.0) % MCV 99.6 (80.0-100.0) fL MCH 33.1 (25.0-35.0) pg MCHC 33.2 (31.0-37.0) g/dL RDW 13.1 (11.5-15.5) % Plt Count 307 (150-450) k/uL MPV 7.2 Neutrophils % 72 % Lymphocytes % 20 % Monocytes % 6 % Eosinophils % 1 % Basophils % 1 % Neutrophils # 5.8 (1.3-7.7) k/uL Lymphocytes # 1.6 (1.0-4.8) k/uL Monocytes # 0.4 (0-1.0) k/uL Eosinophils # 0.1 (0-0.7) k/uL Basophils # 0.0 (0-0.2) k/uL Sodium 138 (137-145) mmol/L Potassium 4.3 (3.5-5.1) mmol/L Chloride 108 H (98-107) mmol/L Carbon Dioxide 23 (22-30) mmol/L Anion Gap 7 mmol/L BUN 16 (7-17) mg/dL Creatinine 0.72 (0.52-1.04) mg/dL Est GFR (CKD-EPI)AfAm >90 (>60 ml/min/1.73 sqM) Est GFR (CKD-EPI)NonAf >90 (>60 ml/min/1.73 sqM) Glucose 106 H (74-99) mg/dL Calcium 9.3 (8.4-10.2) mg/dL Magnesium 2.0 (1.6-2.3) mg/dL Total Bilirubin 0.4 (0.2-1.3) mg/dL AST 21 (14-36) U/L ALT 13 (4-34) U/L Alkaline Phosphatase 68 (38-126) U/L Troponin I (0.000-0.034) ng/mL Total Protein 6.6 (6.3-8.2) g/dL Albumin 4.3 (3.5-5.0) g/dL Urine Color Colorless Urine Appearance Clear (Clear) Urine pH 6.5 (5.0-8.0) Ur Specific [place] 1.002 (1.001-1.035) Urine Protein Negative (Negative) Urine Glucose (UA) Negative (Negative) Urine Ketones Negative (Negative) Urine Blood Negative (Negative) Urine Nitrite Negative (Negative) Urine Bilirubin Negative (Negative) Urine Urobilinogen <2.0 (<2.0) mg/dL Ur Leukocyte Esterase Negative (Negative) 10/21/21 Range/Units 19:37 WBC (3.8-10.6) k/uL RBC (3.80-5.40) m/uL Hgb (11.4-16.0) gm/dL Hct (34.0-46.0) % MCV (80.0-100.0) fL MCH (25.0-35.0) pg MCHC (31.0-37.0) g/dL RDW (11.5-15.5) % Plt Count (150-450) k/uL MPV Neutrophils % % Lymphocytes % % Monocytes % % Eosinophils % % Basophils % % Neutrophils # (1.3-7.7) k/uL Lymphocytes # (1.0-4.8) k/uL Monocytes # (0-1.0) k/uL Eosinophils # (0-0.7) k/uL Basophils # (0-0.2) k/uL Sodium (137-145) mmol/L Potassium (3.5-5.1) mmol/L Chloride (98-107) mmol/L Carbon Dioxide (22-30) mmol/L Anion Gap mmol/L BUN (7-17) mg/dL Creatinine (0.52-1.04) mg/dL Est GFR (CKD-EPI)AfAm (>60 ml/min/1.73 sqM) Est GFR (CKD-EPI)NonAf (>60 ml/min/1.73 sqM) Glucose (74-99) mg/dL Calcium (8.4-10.2) mg/dL Magnesium (1.6-2.3) mg/dL Total Bilirubin (0.2-1.3) mg/dL AST (14-36) U/L ALT (4-34) U/L Alkaline Phosphatase (38-126) U/L Troponin I <0.012 (0.000-0.034) ng/mL Total Protein (6.3-8.2) g/dL Albumin (3.5-5.0) g/dL Urine Color Urine Appearance (Clear) Urine pH (5.0-8.0) Ur Specific [place] (1.001-1.035) Urine Protein (Negative) Urine Glucose (UA) (Negative) Urine Ketones (Negative) Urine Blood (Negative) Urine Nitrite (Negative) Urine Bilirubin (Negative) Urine Urobilinogen (<2.0) mg/dL Ur Leukocyte Esterase (Negative) Disposition Clinical Impression: Palpitations, Anxiety Disposition: HOME SELF-CARE Condition: Stable Instructions (If sedation given, give patient instructions): Hypertension (ED), Anxiety (ED) Additional Instructions: Please follow-up with primary care physician in the next day or 2 for recheck. Return for uncontrolled blood pressure, chest discomfort, increased heart rate, worsening or changing symptoms or other concerns. Prescriptions: Losartan [Cozaar] 50 mg PO DAILY #30 tab Is patient prescribed a controlled substance at d/c from ED?: No Referrals: Willem Anderson [Primary Care Provider] - 1-2 days Time of Disposition: 21:17
[2021-10-21 19:49] LABS: Basophils % (A) 1 %; Eosinophils # (A) 0.1 k/uL (0-0.7); Eosinophils % (A) 1 %; HCT 42.2 % (34.0-46.0); Lymphocytes # (A) 1.6 k/uL (1.0-4.8); Lymphocytes % (A) 20 %; MCH 33.1 pg (25.0-35.0); MCHC 33.2 g/dL (31.0-37.0); MCV 99.6 fL (80.0-100.0); Mean Platelet Volume 7.2; Monocytes # (A) 0.4 k/uL (0-1.0); Monocytes % (A) 6 %; Neutrophils # (A) 5.8 k/uL (1.3-7.7); Neutrophils % (A) 72 %; Platelet Count 307 k/uL (150-450); RBC 4.24 m/uL (3.80-5.40); RDW 13.1 % (11.5-15.5); WBC 8.1 k/uL (3.8-10.6)
[2021-10-21 19:51] LABS: Appearance,Urine Clear (Clear); Bilirubin,Urine Negative (Negative); Blood,Urine Negative (Negative); Color,Urine Colorless; Glucose,Urine (UA) Negative (Negative); Ketones,Urine Negative (Negative); Leukocyte Esterase,Urine Negative (Negative); Nitrite,Urine Negative (Negative); PH, Urine 6.5 (5.0-8.0); Protein,Urine Negative (Negative); Specific Gravity,Urine 1.002 (1.001-1.035); Urobilinogen,Urine <2.0 mg/dL (<2.0)
[2021-10-21 20:00] LABS: ALT 13 U/L (4-34); AST 21 U/L (14-36); African American GFR (CKD) >90 (>60 ml/min/1.73 sqM); Albumin 4.3 g/dL (3.5-5.0); Alkaline Phosphatase 68 U/L (38-126); Anion Gap 7 mmol/L; Blood Urea Nitrogen 16 mg/dL (7-17); Calcium 9.3 mg/dL (8.4-10.2); Carbon Dioxide 23 mmol/L (22-30); Chloride 108 mmol/L (98-107); Glucose 106 mg/dL (74-99); Non-African American GFR(CKD) >90 (>60 ml/min/1.73 sqM); Potassium 4.3 mmol/L (3.5-5.1); Sodium 138 mmol/L (137-145); Total Bilirubin 0.4 mg/dL (0.2-1.3); Total Protein 6.6 g/dL (6.3-8.2)
[2021-10-21 21:54] VITALS: BP 146/88; PULSE 73; RESP 16; TEMP 98.2
== END 2021-10-21 21:54 | disposition home or self-care (01) ==
LOC: EC 18:34
DX: R00.2 Palpitations (principal); F41.9 Anxiety disorder, unspecified; I10 Essential (primary) hypertension; J44.9 Chronic obstructive pulmonary disease, unspecified; M19.90 Unspecified osteoarthritis, unspecified site; F17.200 Nicotine dependence, unspecified, uncomplicated; Z79.899 Other long term (current) drug therapy
CPT/HCPCS: 36415; 80053; 81003; 83735; 84484; 85025; 93005; 96360; 96361; 99284

== ENCOUNTER → 2022-08-09 | Outpatient (CLI) | payer OTHER ==
--- NOTE | 2022-08-09 15:56 | CTL ---
EXAMINATION TYPE: CT Low Dose Lung DATE OF EXAM ORDERED: 08/09/2022 HISTORY: 61-year-old female Z87.891, current smoker, 30 pack-year history. Lung cancer screening CT DLP: 44.[address] CTDI: 1.2 mGy Automated exposure control for dose reduction was used. SCREENING VISIT: Follow-up after 2 years COMPARISON: 06/01/2019 TECHNIQUE: Low dose computed tomography scan was performed through the chest with coronal and sagitta l reconstructions. CT DIAGNOSTIC QUALITY: Satisfactory FINDINGS: 1.7 cm cystic nodule on the right median lower anterior chest wall, likely sebaceous cyst. Heart normal size without pericardial effusion. Aorta normal caliber with conventional arch vessel branching anatomy. Prominent left axillary lymph node measuring 1.6 x 1.0 cm, relatively unchanged from 2020 suggesting a chronic reactive/post inflammatory etiology. Otherwise, no thoracic adenopathy by CT size criteria. [id number]-ch-ecsubsmi diffuse bronchial wall thickening. Mild emphysematous change. Biapical pleural paren chymal scarring. A few scattered benign calcified granulomas. Some strandy atelectasis or scarring at the posterior lung bases. 3 mm right upper lobe pulmonary nodule, axial image 94, unchanged. 4 mm right mid lung pulmonary nodule, axial image 160, unchanged. 4 mm left mid lung pulmonary nodule, axial image 146, unchanged. 4 mm posterior left midlung pulmonary nodule, axial 124, unchanged. Visualized upper abdomen shows inferior splenule. Bones: No osseous destructive process. IMPRESSION: 1. Lung RADS 2, benign. A few scattered 4 mm and smaller pulmonary nodules remain unchanged. 2. COPD with mild to moderate emphysema. Recommend smoking cessation. 3. Incidental 1.7 cm probable sebaceous cyst right paramedian anterior lower chest wall. Clinically c orrelate. CT LUNG RAD AND CT CHEST RECOMMENDATION: Lung-Rad 2 Benign Appearance or Behavior: Continue annual sc reening with LDCT in 12 months. S Modifier (other clinically significant findings): None
== END | disposition home or self-care (01) ==
LOC: RADCTMAIN 10:29
PROVIDERS: ATTEND Family Medicine
DX: Z12.2 Encounter for screening for malignant neoplasm of respiratory organs (principal); J43.9 Emphysema, unspecified; F17.210 Nicotine dependence, cigarettes, uncomplicated; R91.8 Other nonspecific abnormal finding of lung field
CPT/HCPCS: 71271